=== PATIENT | male | born 1990 | race Two or more races ===

== ENCOUNTER 2018-08-07 12:15 | Emergency (ER) | payer MEDICAID ==
[~2018-08-07] VITALS: Ht 175.3 cm; Wt 63.5 kg
[2018-08-07 12:46] VITALS: BP 122/76
[2018-08-07 13:16] LABS: BASOPHILS % (AUTO) 1.3 % (0.0-2.0); EOSINOPHILS % (AUTO) 1.6 % (0.0-3.0); HEMATOCRIT 44.8 % (42.0-52.0); LYMPHOCYTES % (AUTO) 24.6 % (20.0-45.0); MEAN CORPUSCULAR VOLUME 87 FL (80-99); MONOCYTES % (AUTO) 6.7 % (1.0-10.0); NEUTROPHILS % (AUTO) 65.8 % (45.0-75.0); PLATELET COUNT 236 K/UL (150-450); RED BLOOD COUNT 5.13 M/UL (4.70-6.10); RED CELL DISTRIBUTION WIDTH 10.9 % (11.6-14.8); WHITE BLOOD COUNT 7.9 K/UL (4.8-10.8)
[2018-08-07 13:25] LABS: ANION GAP 6 mmol/L (5-15); BLOOD UREA NITROGEN 10 mg/dL (7-18); CALCIUM 9.3 MG/DL (8.5-10.1); CARBON DIOXIDE 31 MMOL/L (21-32); CHLORIDE 104 MMOL/L (98-107); CREATININE 0.9 MG/DL (0.55-1.30); POTASSIUM 4.1 MMOL/L (3.5-5.1); SODIUM 141 MMOL/L (136-145)
[2018-08-07 13:36] LABS: ALANINE AMINOTRANSFERASE 32 U/L (12-78); ALBUMIN 4.1 G/DL (3.4-5.0); ALBUMIN/GLOBULIN RATIO 1.1 (1.0-2.7); ALKALINE PHOSPHATASE 82 U/L (46-116); ASPARTATE AMINO TRANSFERASE 17 U/L (15-37); BILIRUBIN,TOTAL 1.2 MG/DL (0.2-1.0)
[2018-08-07 13:40] LABS: BILIRUBIN,DIRECT 0.2 MG/DL (0.0-0.3)
--- NOTE | 2018-08-07 14:47 | Diagnostic Imaging Report ---
Indication: Chest pain Technique: One view of the chest Comparison: none Findings: Lungs and pleural spaces are clear. Heart size is normal Impression: No acute process
[2018-08-07] MEDS ORDERED: IBUPROFEN600 MG ORAL (14:51)
[2018-08-07 14:57] VITALS: BP 132/78
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
--- NOTE | 2018-08-09 15:33 | Cardiology Report ---
APPROVED REPORT EKG Measurement Heart [id number] ID [id number] Normal sinus rhythm Normal ECG
== END 2018-08-07 14:59 | disposition home or self-care (01) ==
LOC: EMR 13:30
DX: S20.212A Contusion of left front wall of thorax, initial encounter (principal); S09.90XA Unspecified injury of head, initial encounter; R42 Dizziness and giddiness; Y09 Assault by unspecified means; Y92.9 Unspecified place or not applicable
CPT/HCPCS: 36415; 71045; 80053; 82248; 85025; 93005; 96360; 99284